=== PATIENT | female | born 1940 | race Two or more races ===

== ENCOUNTER 2020-03-11 13:24 | Emergency (ER) | payer OTHER ==
[~2020-03-11] VITALS: Ht 160 cm; Wt 52.2 kg
[2020-03-11] MEDS ORDERED: ENALAPRIL MALEA10 MG (13:48)
== END 2020-03-11 20:00 | disposition home or self-care (01) ==
LOC: ER 13:24
DX: K52.89 Other specified noninfective gastroenteritis and colitis (principal); Z03.818 Encounter for observation for suspected exposure to other biological agents ruled out